=== PATIENT | male | born 1955 | race Caucasian/White ===

== ENCOUNTER 2018-02-13 12:23 | Emergency (ER) | payer BC ==
[2018-02-13] MEDS: TRIMETHOPRIM/SULFAMETHOX (DS) TAB PO (12:52)
[2018-02-13] MEDS: HYDROCODONE/APAP (5/325) TAB PO (12:53)
[2018-02-13] MEDS: CEPHALEXIN 500 MG CAP PO (12:53)
[2018-02-13] MEDS: LIDOCAINE 1% (MDV) 10 ML INJ INFIL (12:55)
[2018-02-13] MEDS: HYDROmorphONE 0.5 MG/0.5 ML SYG IM (13:27)
== END 2018-02-13 14:34 | disposition home or self-care (01) ==
LOC: FTE 12:23
DX: L02.31 Cutaneous abscess of buttock (principal); F17.210 Nicotine dependence, cigarettes, uncomplicated
CPT/HCPCS: 10060; 96372; 99284-25